=== PATIENT | female | born 1975 | race Caucasian/White ===

== ENCOUNTER 2020-06-15 03:21 | Emergency (ER) | payer OTHER, SELFPAY ==
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
[2020-06-15 03:42] VITALS: PULSE 64; RESP 18; TEMP 36.6; BMI 25.3
[2020-06-15 04:00] VITALS: BP 110/76; PULSE 64; RESP 16; O2SAT 98
[2020-06-15 04:02] LABS: Amphetamines Screen Urine Negative (Negative); Barbiturates Screen Urine Negative (Negative); Benzodiazepines Screen Urine Negative (Negative); Cocaine Screen Urine Negative (Negative); Opiate Screen Urine Negative (Negative); PCP Screen Urine Negative (Negative); THC Screen Urine Negative (Negative)
[2020-06-15 04:30] VITALS: BP 112/74; PULSE 70; RESP 16; O2SAT 98
== END 2020-06-15 04:32 | disposition home or self-care (01) ==
PROVIDERS: Emergency Provider Emergency Medicine
DX: S30.810A Abrasion of lower back and pelvis, initial encounter (principal); X58.XXXA Exposure to other specified factors, initial encounter
CPT/HCPCS: 12345; 80306; 99281; 99282

== ENCOUNTER → 2022-08-31 09:54 | Outpatient (BNVA) | payer OTHER, SELFPAY | PROVIDERS: Visit Provider Nurse Practitioner Family | DX: R07.81 Pleurodynia (principal); M25.521 Pain in right elbow | CPT/HCPCS: 71101; 73080; 73562 ==

== ENCOUNTER 2022-11-20 17:41 | Emergency (ER) | payer OTHER, BC, SELFPAY ==
[2022-11-20 18:06] VITALS: BP 126/76; PULSE 76; RESP 14; TEMP 36.7; O2SAT 99
--- NOTE | 2022-11-20 18:36 | ED_ITS ---
HPI - Dental/Oral General: Chief complaint: Dental/Oral Stated complaint: jaw pain/infection Time Seen by Provider: 11/20/22 18:34 History of Present Illness: 47-year-old female comes in today for complaints of posterior pharynx drainage and concerned that she had a adhesion of her de ntal surgery. Surgery occurred about 6 months ago. Patient reported tasting some foul drainage and coughing up some greenish sputum. Patient also is concerned about her left ankle as it has been weaker and giving out more since having the knee injury. The knee injury has been managed by Workmen's Comp. Patient reports 2 days ago she twisted her ankle again and is concerned she may have injured it. Patient appears nontoxic. Patient appears in no pain. Associated symptoms: Denies fever(s) Review of Systems General: Reports: 10 or more systems reviewed and unremarkable except in HPI and below Const: Denies: fever(s) ENMT: Reports: post nasal drip Musc: Reports: extremity pain PFSH ED PFSH: Social History Smoking and tobacco status: never smoked Female Reproductive History: Spontaneous abortions: No Physical Exam Const: COMMON NORMALS: alert HENMT: COMMON NORMALS: normocephalic HEAD & SCALP: normocephalic MOUTH: Normal oral and palatal mucosa present THROAT: posterior oropharynx abnormal erythema and other (Streaking and drainage) Neck/C-Spine: COMMON NORMALS: full ROM Lymph: LYMPHATIC: lymphadenopathy (Mild left side tender) Resp: COMMON NORMALS: normal respiratory effort Cardio: COMMON NORMALS: regular rate RATE: regular rate Extremity: LEFT LOWER EXTREMITY: Yes ankle joint (No swelling) Left ankle: Yes inspection, Yes palpation and Yes ROM Neuro: SENSORIUM/ORIENTATION: Yes alert Skin: COMMON NORMALS: turgor normal GENERAL SKIN EXAM: turgor normal Course Vital Signs: Vital signs: Vital Signs Temperature 98.1 F 11/20/22 18:06 Pulse Rate 76 11/20/22 18:06 Respiratory Rate 14 11/20/22 18:06 Blood Pressure 126/76 11/20/22 18:06 Pulse Oximetry 99 11/20/22 18:06 Oxygen Delivery Me thod 11/20/22 18:06 MDM - Dental/Oral Medical Decision Making Patient comes in today for concerns of infection from old dental surgery over 6 months ago. Patient is also concerned about an ankle injury from 2 days ago. On exam posterior pharynx shows some streaking and some drainage. Patient has some anterior lymphadenopathy with some mild tenderness on the left side. Respirations are even. Patient also has some tenderness to the lateral left ankle without no swelling. Differential diagnosis includes not limited to malingering, postnasal drip, sinusitis, ankle sprains, osteoarthritis. X-ray was unremarkable of the ankle. Believe patient probably has a mild sinusitis we will treat with doxycycline and recommend follow-up further for her ankle with her Workmen's Comp. provider. Patient reported understanding and agreed to plan. Lab Data Radiology Impressions Ankle X-Ray 11/20/22 18:49 IMPRESSION: No acute findings. Discharge Plan Discharge Patient Disposition: Home Clinical Impression: PND (post-nasal drip) Ankle sprain Qualifiers: Encounter type: initial encounter Involved ligament of ankle: unspecified ligament Laterality: left Qualified Code(s): S93.402A - Sprain of unspecified ligament of left ankle, initial encounter Condition: Stable Prescriptions: New doxycycline monohydrate 100 mg capsule 100 mg PO BID 10 Days Qty: 20 0RF No Action methocarbamol 750 mg tablet 750 mg PO Q8H Qty: 5 0RF Discharge Orders: Discharge ED (Routine); Ordered 11/20/22 Ordered By: Samuel Cagle Discharge Diet: Usual diet Patient Instructions: Ankle Sprain (ED) Activity Restrictions/Additional Instructions: Take antibiotics as directed. Drink plenty of water with medication. Follow-up with primary care/dentist for further evaluation and concerns of dental repair. Follow-up with Workmen's Comp. provider for further evaluation of ankle and knee. Return to ED for new concerns. Coding Level of Care Code ED Print Line Supervisor for Aiden Wilson
--- NOTE | 2022-11-20 18:49 | XRR_ITS ---
PROCEDURE INFORMATION: Exam: XR Left Ankle Exam date and time: 11/20/2022 6:54 PM Age: 47 years old Clinical indication: Pain; Ankle; Left; Additional info: Injury TECHNIQUE: Imaging protocol: Radiologic exam of the Left ankle. Views: 3 or more views. COMPARISON: No relevant prior studies available. FINDINGS: Bones/joints: Normal. Soft tissues: Normal. XR/XR ankle LT min 3V* [id number] IMPRESSION: No acute findings.
[2022-11-20] MEDS: doxycycline 100 mg Tablet PO (19:09)
== END 2022-11-20 19:44 | disposition home or self-care (01) ==
PROVIDERS: Emergency Provider Nurse Practitioner Family
DX: R09.82 Postnasal drip (principal); S93.402A Sprain of unspecified ligament of left ankle, initial encounter; X50.1XXA Overexertion from prolonged static or awkward postures, initial encounter
CPT/HCPCS: 73610; 99283

== ENCOUNTER 2022-11-24 07:39 | Outpatient (CLI) | payer OTHER, SELFPAY ==
--- NOTE | 2022-11-24 08:07 | MR_ITS ---
WS: [id number] MRI LEFT KNEE HISTORY: SPRAIN OF OTHER SPECIFIED PARTS OF L KNEE COMPARISON: Radiograph 08/31/2022 Anterior cruciate ligament: Mild thickening and variable signal within the ACL. No tear. Most likely mucoid degeneration. Posterior cruciate ligament: Intact. Medial collateral ligament: Increased fluid surrounding the MCL. There is a partial tear involving th e MCL above the knee joint. Posterior lateral corner structures: Intact. Medial menisci: Intact. Normal signal, size and shape. Lateral meniscus: Intact. Normal signal, size and shape. Extensor mechanism: Distal quadriceps tendon and patellar tendons are intact. Fluid and soft tissue: No joint effusion. No Ramesh's cyst. Osseous and articular structures: Patellofemoral compartment: Normal. Medial compartment: Very minimal medial compartment. 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 There is a small amount of soft tissue edema exte nding posterior and along the medial femoral condyle. Lateral compartment: Negative. MR/MR knee LT wo con* [id number] IMPRESSION: 1. Partial tear MCL. 2. 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 3. Small amount of soft tissue edema adjacent to the medial femoral condyle ex tending posteriorly. Probably associated with the MCL injury and tear.
== END 2022-11-24 07:40 | disposition home or self-care (01) ==
PROVIDERS: Visit Provider Family Medicine
DX: S83.412A Sprain of medial collateral ligament of left knee, initial encounter (principal); M94.262 Chondromalacia, left knee; R60.0 Localized edema; X58.XXXA Exposure to other specified factors, initial encounter
CPT/HCPCS: 73721

== ENCOUNTER 2023-01-11 16:55 | Emergency (ER) | payer OTHER, BC, SELFPAY ==
[2023-01-11 17:13] VITALS: BP 115/75; PULSE 68; RESP 16; TEMP 36.6; O2SAT 98; BMI 29.6
--- NOTE | 2023-01-11 18:00 | XRR_ITS ---
PROCEDURE INFORMATION: Exam: XR Left Tibia and Fibula Exam date and time: 01/11/2023 6:40 PM Age: 47 years old Clinical indication: Pain; Lower leg; Left; Additional info: Injury, fell in August, cold, knot, lateral side, bruise TECHNIQUE: Imaging protocol: Radiologic exam of the Left tibia and fibula. Views: 2 views. COMPARISON: CR (LOW EXM, ) 11/20/2022 6:54 PM FINDINGS: Bones/joints: Tibia and fibula are intact. Negative for fracture. Soft tissues: Normal. XR/XR tibia fibula LT 2V [id number] IMPRESSION: No acute findings.
--- NOTE | 2023-01-11 18:00 | XRR_ITS ---
PROCEDURE INFORMATION: Exam: XR Left Ankle Exam date and time: 01/11/2023 6:40 PM Age: 47 years old Clinical indication: Pain; Ankle; Left; Additional info: Pain, fell in August off a platform, lateral pain, swelling TECHNIQUE: Imaging protocol: Radiologic exam of the Left ankle. Views: 3 or more views. COMPARISON: CR (LOW EXM, ) 11/20/2022 6:54 PM FINDINGS: Bones/joints: Osseous structures are intact. Negative for fracture. Joint spaces are preserved. Soft tissues: Normal. XR/XR ankle LT min 3V* [id number] IMPRESSION: No acute findings.
--- NOTE | 2023-01-11 18:00 | XRR_ITS ---
PROCEDURE INFORMATION: Exam: XR Left Knee Exam date and time: 01/11/2023 6:40 PM Age: 47 years old Clinical indication: Pain; Knee; Left; Additional info: Injury, fell in August, heard a pop TECHNIQUE: Imaging protocol: Radiologic exam of the Left knee. Views: 3 views. COMPARISON: MR knee LT wo con* [id number] 11/24/2022 8:50 AM FINDINGS: Bones/joints: Osseous structures are intact. Negative for fracture. Joint spaces are preserved. Soft tissues: Normal. XR/XR knee LT 3V* [id number] IMPRESSION: No acute findings.
--- NOTE | 2023-01-11 19:10 | W.ED.EXTPRO ---
HPI - Extremity Problem General: Chief complaint: Extremity Injury, Lower Stated complaint: left leg pain Time Seen by Provider: 01/11/23 19:10 PFSH ED PFSH: Social History Smoking and tobacco status: never smoked Female Reproductive History: Spontaneous abortions: No Course Vital Signs: Vital signs: Vital Signs Temperature 97.9 F 01/11/23 17:13 Pulse Rate 68 01/11/23 17:13 Respiratory Rate 16 01/11/23 17:13 Blood Pressure 115/75 01/11/23 17:13 Pulse Oximetry 98 01/11/23 17:13 Oxygen Delivery Me thod 01/11/23 17:13 Discharge Plan Discharge Condition: Stable Prescriptions: No Action methocarbamol 750 mg tablet 750 mg PO Q8H Qty: 5 0RF Coding Level of Care Code ED [employer] Sales Representative for Aiden Wilson
--- NOTE | 2023-01-11 19:24 | W.ED.EXTPRO ---
HPI - Extremity Problem General: Chief complaint: Extremity Injury, Lower Stated complaint: left leg pain Time Seen by Provider: 01/11/23 19:10 History of Present Illness: Patient is in today for left knee and leg pain. She reports that in August she fell and hurt her knee. She is followed up with Workmen's Comp. and also had an MRI of the knee which showed a torn meniscus. She is doing physical therapy exercises. She reports that today she was doing her physical therapy exercises and now she is felt a pop below her knee and she has pain down the left lateral leg. Associated symptoms: Deny chest pain or fever(s) Review of Systems Const: Denies: fever(s) or chills Card: Denies: chest pain or palpitations Resp: Denies: dyspnea, productive cough or non-productive cough Musc: Reports: extremity pain, extremity swelling and joint pain PFS ED PFSH: Social History Smoking and tobacco status: never smoked Female Reproductive History: Spontaneous abortions: No Physical Exam Const: OTHER: Patient is sitting in the recliner in vertical flow. She is continuously rubbing her left leg on the lateral side very firm. Resp: COMMON NORMALS: normal respiratory effort and No use of accessory muscles Extremity: NARRATIVE EXTREMITY EXAM: There is tenderness to palpation over the region of the left knee lateral collateral ligament. Also the left lateral calf there is noted some bruising but this is in the area that the patient is continuously rubbing very firmly. I suspect the patient has caused superficial tissue trauma from the repeated rubbing. Negative Homans' sign. No tenderness to palpation to the calf posterior, popliteal region. Full range of motion appreciated. No obvious bony or soft tissue deformity. Tenderness to palpation isolated along the lateral collateral ligament and one area on the mid metcalf there is some bony tenderness. Patient does have minimal edema extending down to the ankle. CSM within normal limits Course Vital Signs: Vital signs: Vital Signs Temperature 97.9 F 01/11/23 17:13 Pulse Rate 83 01/11/23 20:40 Respiratory Rate 16 01/11/23 20:40 Blood Pressure 124/38 01/11/23 20:40 Pulse Oximetry 100 01/11/23 20:40 Oxygen Delivery Me thod 01/11/23 17:13 MDM - Extremity (Nontraumatic) Medical Decision Making Knee strain/sprain, fracture Patient is a little concerned about a DVT however I explained to her that her lateral calf is less likely for DVT due to anatomical placement of deep venous structures. X-ray 3 view left knee wet read: No acute osseous deformity, x-ray 2 view tib-fib wet read: No acute osseous deformity, x-ray 3 view left ankle wet read: No acute osseous deformity. Awaiting radiologist review We will treat patient conservatively for strain of the lateral collateral ligament of the left knee. Phil wrap the knee. Provide patient with crutches and advised her to limit weightbearing for the next 3 days and slowly advance weightbearing as tolerated. Advised patient to elevate the extremity above the level of her heart and ice the extremity several times per day. Advised her to follow-up with her Workmen's Comp. physician and orthopedist. Return to the ER as needed for new or worsening symptoms Lab Data Radiology Impressions Ankle X-Ray 01/11/23 18:00 IMPRESSION: No acute findings. Knee X-Ray 01/11/23 18:00 IMPRESSION: No acute findings. Tibia/Fibula X-Ray 01/11/23 18:00 IMPRESSION: No acute findings. Discharge Plan Discharge Patient Disposition: Home Clinical Impression: Sprain of knee, lateral collateral ligament Condition: Stable Prescriptions: No Action methocarbamol 750 mg tablet 750 mg PO Q8H Qty: 5 0RF Discharge Orders: Discharge ED (Routine); Ordered 01/11/23 Ordered By: Kenisha Urbina Discharge Diet: Usual diet Discharge Activity: Limit activity as instructed Patient Instructions: Knee Sprain (ED) Activity Restrictions/Additional Instructions: I recommend that using crutches to limit weightbearing x3 days and then slowly advance weightbearing as tolerated. Elevate the extremity above the level of your heart and ice the extremity several times per day. Continue follow-up with Workmen's Comp. provider and orthopedics for your ongoing knee pain. Return to the ER as needed for new or worsening symptoms Stand Alone Forms: Work/School Release Coding Level of Care Code ED Individualized Education Plan Aide for Aiden Wilson
[2023-01-11] MEDS: ketorolac 60 mg/2 mL INJ IM (20:24)
[2023-01-11 20:40] VITALS: BP 124/38; PULSE 83; RESP 16; O2SAT 100
== END 2023-01-11 20:30 | disposition home or self-care (01) ==
PROVIDERS: Emergency Provider Nurse Practitioner Family
DX: S83.422A Sprain of lateral collateral ligament of left knee, initial encounter (principal); X58.XXXA Exposure to other specified factors, initial encounter; Y93.B9 Activity, other involving muscle strengthening exercises
CPT/HCPCS: 73562; 73590; 73610; 96372; 99284; E0114; J1885

== ENCOUNTER 2023-08-11 19:59 | Emergency (ER) | payer OTHER, SELFPAY ==
[2023-08-11 20:11] VITALS: BP 127/78; PULSE 69; RESP 16; TEMP 36.4; O2SAT 97; BMI 29.0
--- NOTE | 2023-08-11 20:32 | XRR_ITS ---
PROCEDURE INFORMATION: Exam: XR Lumbosacral Spine Exam date and time: 08/11/2023 8:50 PM Age: 48 years old Clinical indication: Prior surgery; Surgery date: 6+ months; Surgery type: L5-s1 disc prosthesis; Patient HX: C/O persistent low back pain since a fall in May. TECHNIQUE: Imaging protocol: Radiologic exam of the lumbosacral spine. Views: 2 or 3 views. COMPARISON: CT lumbar spine wo contrast 12/12/2011 1:35 PM FINDINGS: Bones/joints: Minimal levoconvex curvature of the lumbar spine. No acute fracture or vertebral compression. Narrowing of the intervertebral disc space at L4-L5. Minimal Grade 1 anterolisthesis of L4 without associated fracture and presumably degenerative related. Stable position of the L5-S1 disc prosthesis. Soft tissues: Unremarkable. XR/XR lumbar spine 2-3V* [id number] IMPRESSION: 1. Stable position of the L5-S1 disc prosthesis. 2. Degenerative disc disease at L4-L5. 3. Minimal grade 1 anterolisthesis of L4, likely degenerative related.
--- NOTE | 2023-08-11 20:32 | W.ED.BACK ---
HPI - Back Pain/Injury General: Chief Complaint: Back Pain/Injury Stated Complaint: Lower Back Pain\Left Knee Pain Time Seen by Provider: 08/11/23 20:25 History of Present Illness: 48-year-old female presents emergency with lower back pain within the past few months. Patient given extensive history of back injury that started last August and sustained another injury in May of this year. Patient was seen and evaluated by a specialist in May but never had any x-ray done. She described the pain as sharp aching sensation with severity of 9 out of 10 mostly lower lumbar area. Increased pain with bending and movement. Patient denies any dysuria, hematuria or flank pain. No bowel or bladder dysfunction. No lower extremity numbness or tingling. No fever or chills. No new injury or recent fall. Associated symptoms: Deny chills, dysuria, fatigue or fever(s) Review of Systems General: Reports: 10 or more systems reviewed and unremarkable except in HPI and below Const: Denies: fever(s), chills, body aches, change in appetite, change in weight, fatigue or malaise Resp: Denies: dyspnea, productive cough or non-productive cough : Denies: flank pain, difficulty voiding, dysuria, amenorrhea or pelvic pain Musc: Reports: back pain; Denies: extremity pain, extremity swelling, joint swelling, joint redness, joint stiffness, limited range of motion or loss of height PFS ED PFSH: Social History Smoking and tobacco status: never smoked Female Reproductive History: Spontaneous abortions: No Physical Exam Const: COMMON NORMALS: no acute distress, average body habitus, patient oriented x3, no limitations, healthy appearing, alert and well nourished Neck/C-Spine: COMMON NORMALS: full ROM, no lymphadenopathy, supple, no meningeal signs, no JVD, Thyroid normal and No carotid bruits THYROID: Thyroid normal Chest: COMMONS NORMALS: normal inspection of the chest, normal palpation of entire chest wall, normal inspection of the breasts and normal palpation of the breasts Breast/axilla inspection: Yes normal inspection of the breasts BREAST/AXILLA PALPATION: Yes normal palpation of the breasts Resp: COMMON NORMALS: normal respiratory effort, No retractions, No use of accessory muscles, clear to auscultation bilaterally and percussion normal AUSCULTATION: clear to auscultation bilaterally PERCUSSION: percussion normal Cardio: COMMON NORMALS: no JVD GI: COMMON NORMALS: Normal to inspection, nondistended, normoactive bowel sounds present, Soft to palpation, non-tender, No hepatosplenomegaly present, no masses and no bruits PALPATION: Yes Soft to palpation and Yes No hepatosplenomegaly present Back/Pelvis: LUMBAR SPINE/LOWER BACK: Yes lumbar spinal tenderness Lumbar spinal tenderness location: L3, L4 and L5, No mass present and No Lumbar scoliosis PELVIS: Yes buttocks normal SACRUM: no ecchymosis, no erythema and no swelling Neuro: COMMON NORMALS: patient oriented x3 SENSORIUM/ORIENTATION: Yes alert MENINGEAL SIGNS: Yes no meningeal signs Skin: COMMON NORMALS: no rashes or lesions noted, no wounds, turgor normal, no jaundice, no petechiae and no mottling GENERAL SKIN EXAM: no rashes or lesions noted and turgor normal Course Vital Signs: Vital signs: Vital Signs Temperature 97.5 F L 08/11/23 20:11 Pulse Rate 67 08/11/23 20:41 Respiratory Rate 18 08/11/23 20:41 Blood Pressure 127/84 08/11/23 20:41 Pulse Oximetry 99 08/11/23 20:41 Oxygen Delivery Me thod Room Air 08/11/23 20:41 MDM - Back Pain/Injury Medical Decision Making Patient was made comfortable emergency room and had extensive work-up including x-ray done. X-ray reviewed and discussed with patient. Close follow-up PCP recommended for further evaluation such as MRI. Will give referral to see orthopedic surgeon and back specialist locally. Differential Diagnosis Likely lumbar radiculopathy, sciatica, strain of lumbar region, renal colic, pyelonephritis, thoracic back pain, AAA and discitis Labs Radiology Impressions Lumbar Spine X-Ray 08/11/23 20:32 IMPRESSION: 1. Stable position of the L5-S1 disc prosthesis. 2. Degenerative disc disease at L4-L5. 3. Minimal grade 1 anterolisthesis of L4, likely degenerative related. All radiology interpretation(s) finalized by discharge Discharge Plan Discharge Patient Disposition: Home Clinical Impression: Strain of lumbar region, Back pain, Chronic back pain Condition: Stable Prescriptions: New naproxen 500 mg tablet 500 mg PO BID PRN (Reason: pain) Qty: 20 0RF tramadol 50 mg tablet 50 mg PO Q12H PRN (Reason: pain) Qty: 20 0RF No Action methocarbamol 750 mg tablet 750 mg PO Q8H Qty: 5 0RF Discharge Orders: Discharge ED (Routine); Ordered 08/11/23 Ordered By: Bud Estes Referrals: Daniele Melendez MD [Primary Care Provider] - Discharge Diet: Advance as tolerated Discharge Activity: Resume usual activity Patient Instructions: Opioid Safety, Pain Management Coding Level of Care Code ED Pulper Operator for Aiden Wilson
[2023-08-11 20:41] VITALS: BP 127/84; PULSE 67; RESP 18; O2SAT 99
[2023-08-11] MEDS: ketorolac 30 mg/mL INJ IM (20:47)
[2023-08-11] MEDS: dexamethasone 10 mg/mL INJ IM (20:47)
[2023-08-11 22:57] VITALS: RESP 16
== END 2023-08-11 22:57 | disposition home or self-care (01) ==
PROVIDERS: Emergency Provider Family Medicine; PCP Family Medicine
DX: S39.012A Strain of muscle, fascia and tendon of lower back, initial encounter (principal); G89.29 Other chronic pain; X58.XXXA Exposure to other specified factors, initial encounter
CPT/HCPCS: 72100; 96372; 99284; J1100; J1885

== ENCOUNTER 2023-10-17 10:31 | Outpatient (CLI) | payer OTHER, SELFPAY ==
--- NOTE | 2023-10-17 10:41 | MR_ITS ---
WS: [id number] MRI LUMBAR SPINE NONCONTRAST TECHNIQUE: Sagittal T1, T2 and STIR imaging. Axial T1 and T2 imaging. CLINICAL INFORMATION: LOW BACK PAIN COMPARISON: MRI 2015 FINDINGS: Mild lumbar curve. No acute compression. Mild disc bulging L2-L4 progressed compared to 2015. No high -grade central canal stenosis. Incidental Tarlov cyst in the sacrum. L1-L2: Normal. L2-L3: Mild annular bulging. Mild facet arthropathy. Spinal canal and foramen are patent. L3-L4: Mild annular bulging. Slight narrowing subarticular recess bilaterally. Moderate facet arthrop athy. Small RIGHT foraminal protrusion with mild RIGHT foraminal narrowing. No significant LEFT marizol inal narrowing. L4-L5: Mild annular bulging with slight effacement of the ventral thecal sac. Moderate facet arthropa thy. Mild bilateral foraminal narrowing. Slight narrowing of the LEFT greater than RIGHT subarticular recess. L5-S1: Prior postoperative changes interbody fusion L5-S1 with susceptibility artifact. Mild facet ar thropathy. Foramen appear patent. Adrenal glands are normal. Visualized pelvic bony structures: Normal. Paravertebral soft tissues: Normal. IMPRESSION: 1. Mild lumbar curve. No acute compression. Prior interbody fusion L5-S1 with susceptibility artifac t. 2. Small RIGHT foraminal protrusion L3-4 with mild RIGHT foraminal narrowing and slight impingement on the exiting RIGHT L3 nerve root. This is new compared to previous. 3. Mild annular bulging L4-5 with some impingement on the subarticular recess LEFT greater than RIGH T and traversing L5 nerve roots new compared to previous. Mild RIGHT greater than LEFT foraminal narr owing. 4. Moderate facet arthropathy L3-L4 and L4-L5.
--- NOTE | 2023-10-17 10:41 | MR_ITS ---
WS: [id number] MRI LEFT KNEE NONCONTRAST TECHNIQUE: Axial PD, coronal PD fat sat, coronal PD, sagittal PD, and sagittal PD fat-sat images obta ined. CLINICAL INFORMATION: PAIN IN LEFT KNEE COMPARISON: MRI 2021 FINDINGS: Distal quadriceps and patella tendons are intact. Hypertrophic patella. Normal ACL and PCL. Chronic t hinning of the medial and lateral meniscus. No acute appearing meniscal tears. Moderate chondromalacia medial greater than lateral joint compartments. Mild to moderate chondromalac ia patella. Normal medial and lateral patellar retinaculum. Normal popliteal fossa. Normal medial and lateral collateral ligaments. Previously described edema about the MCL has improved and essentially resolved. Small amount of prepatellar and infrapatellar soft tissue edema. Chondromalacia in the medial joint compartment has progressed compared to previous. IMPRESSION: 1. Normal ACL and PCL. 2. Grade III chondromalacia medial joint compartment has progressed compared to previous. No subchon dral edema. Chronic thinning of the medial meniscus. 3. No acute appearing meniscal tears. 4. Moderate chondromalacia patella. 5. MCL and LCL appear intact. 6. No other acute findings. Outbridge grading:
== END 2023-10-17 10:32 | disposition home or self-care (01) ==
LOC: RAD 10:31
PROVIDERS: PCP Family Medicine; Visit Provider Nurse Practitioner Family
DX: M25.562 Pain in left knee (principal); M54.50 Low back pain, unspecified; M51.16 Intervertebral disc disorders with radiculopathy, lumbar region; M43.06 Spondylolysis, lumbar region; M94.262 Chondromalacia, left knee
CPT/HCPCS: 72148; 73721

== ENCOUNTER 2023-12-12 15:24 | Emergency (ER) | payer OTHER, SELFPAY ==
[2023-12-12 15:31] VITALS: BP 114/73; PULSE 78; RESP 15; TEMP 37.1; O2SAT 98; BMI 29.0
[2023-12-12 16:55] VITALS: BP 116/65; PULSE 65; RESP 18; O2SAT 96
--- NOTE | 2023-12-12 16:56 | W.ED.BACK ---
HPI - Back Pain/Injury General: Chief Complaint: Back Pain/Injury Stated Complaint: lower back pain Time Seen by Provider: 12/12/23 16:41 Source: patient Mode of arrival: ambulatory History of Present Illness: 48-year-old female was injured in a work injury during the summer last year has been doing follow-up with orthopedic spine surgery has had MRIs various other interventions continues to have severe back pain today she had a walk a long distance on uneven ground after tractor broke down is complaining of severe back pain no red flag symptoms she did not fall no fecal incontinence or urinary retention MD elicited complaint: back pain Associated symptoms: Deny abdominal pain, chills, dysuria, fever(s) or urinary urgency Review of Systems Const: Denies: fever(s) or chills Card: Denies: chest pain Resp: Denies: dyspnea GI: Denies: abdominal pain : Denies: dysuria, urinary frequency or urinary urgency Musc: Denies: neck pain or back pain Skin/Breast: Denies: rash PFSH ED PFSH: Social History Smoking and tobacco/nicotine status: never used tobacco/nicotine Female Reproductive History: Spontaneous abortions: No Physical Exam Const: COMMON NORMALS: no acute distress GENERAL APPEARANCE: cooperative and comfortable ORIENTATION/CONSCIOUSNESS: Yes awake, Yes oriented to person, Yes oriented to place and Yes oriented to time HENMT: COMMON NORMALS: normocephalic, atraumatic and hearing grossly normal bilaterally HEAD & SCALP: normocephalic and atraumatic Resp: COMMON NORMALS: normal respiratory effort, No retractions, No use of accessory muscles and clear to auscultation bilaterally AUSCULTATION: clear to auscultation bilaterally Cardio: COMMON NORMALS: regular rate, regular rhythm and No murmurs present (Cardio) RATE: regular rate RHYTHM: regular rhythm GI: COMMON NORMALS: Soft to palpation and No hepatosplenomegaly present AUSCULTATION: Yes normoactive bowel sounds PALPATION: Yes Soft to palpation, No Tenderness to palpation present (GI), No Guarding due to palpation present (GI) and Yes No hepatosplenomegaly present Extremity: COMMON NORMALS: normal to inspection, capillary refill normal, no clubbing, cyanosis or edema, no calf tenderness and no pedal edema Neuro: SENSORIUM/ORIENTATION: Yes oriented to person, Yes oriented to place and Yes oriented to time Skin: COMMON NORMALS: no rashes or lesions noted GENERAL SKIN EXAM: no rashes or lesions noted Course Vital Signs: Vital signs: Vital Signs Temperature 98.7 F 12/12/23 15:31 Pulse Rate 65 12/12/23 16:55 Respiratory Rate 18 12/12/23 16:55 Blood Pressure 116/65 12/12/23 16:55 Pulse Oximetry 96 12/12/23 16:55 Oxygen Delivery Me thod Room Air 12/12/23 16:55 MDM - Back Pain/Injury Medical Decision Making Back pain improved with medications given. Will discharge home on steroid taper change her to tizanidine diclofenac add Lyrica. Also use Phenergan as needed for nausea follow-up as scheduled with orthopedic spine surgery. Differential Diagnosis Likely lumbar radiculopathy, sciatica and strain of lumbar region Medical Records I reviewed the patient's medical records. Labs I reviewed the patient's lab results. No radiology studies performed this visit Discharge Plan Discharge Patient Disposition: Home Clinical Impression: Lumbar radiculopathy Condition: Stable Prescriptions: New tizanidine 4 mg tablet 4 mg PO Q6H PRN (Reason: muscle spasticity) Qty: 20 0RF Rx Instructions: do not exceed 3 doses per 24 hrs prednisone 20 mg tablet 20 mg PO TID Qty: 15 0RF Rx Instructions: 1 p.o. 3 times daily x3 days, 1 p.o. twice daily x2 days, 1 p.o. daily x2 days diclofenac sodium 75 mg tablet,delayed release (DR/EC) 75 mg PO Q12H PRN (Reason: pain) Qty: 20 0RF Lyrica 75 mg capsule 75 mg PO BID Qty: 60 0RF promethazine 25 mg tablet 25 mg PO Q6H PRN (Reason: nausea and vomiting) Qty: 20 0RF Held naproxen 500 mg tablet 500 mg PO BID PRN (Reason: pain) Qty: 20 0RF Hold Instructions: Resume on 12/22/23. No Action methocarbamol 750 mg tablet 750 mg PO Q8H Qty: 5 0RF tramadol 50 mg tablet 50 mg PO Q12H PRN (Reason: pain) Qty: 20 0RF Discharge Orders: Discharge ED (Routine); Ordered 12/12/23 Ordered By: Jim Deluna Referrals: Daniele Melendze MD [Primary Care Provider] - Discharge Diet: Usual diet Discharge Activity: Increase activity as tolerated Patient Instructions: Lumbar Radiculopathy (ED), Opioid Safety, Pain Management Activity Restrictions/Additional Instructions: Thank you for choosing [facility] for your healthcare needs today. Please realize this is an emergency room and that we are providing you with a medical screening exam and this may not be complete and all inclusive of all the testing and or work up that you may need to determine your ailment or severity of your illness. It is very important that you follow up as instructed or that you return to the Emergency Department should you have concerns or if your condition changes or worsens in any way. Coding Level of Care Code ED Cardroom Supervisor for Aiden Wilson
[2023-12-12] MEDS: morphine 4 mg/mL SDV 1 mL IVP (17:32)
[2023-12-12] MEDS: dexamethasone 10 mg/mL INJ IVP (17:32)
[2023-12-12] MEDS: orphenadrine 30 mg/mL Inj 2 mL 60 MG IVP (17:33)
[2023-12-12] MEDS: ketorolac 30 mg/mL INJ IVP (17:33)
== END 2023-12-12 18:33 | disposition home or self-care (01) ==
PROVIDERS: Emergency Provider Family Medicine; PCP Family Medicine
DX: M54.16 Radiculopathy, lumbar region (principal)
CPT/HCPCS: 96374; 96375; 99284; J1100; J1885; J2270; J2360

== ENCOUNTER → 2024-06-11 13:01 | Outpatient (BNVA) | payer SELFPAY | PROVIDERS: PCP Family Medicine; Visit Provider Nurse Practitioner | DX: M25.562 Pain in left knee (principal) | CPT/HCPCS: 73560; 73565 ==

== ENCOUNTER → 2024-11-11 15:33 | Outpatient (BNVA) | payer BC, SELFPAY | PROVIDERS: PCP Family Medicine; Visit Provider Orthopaedic Surgery | DX: M54.42 Lumbago with sciatica, left side (principal); G89.29 Other chronic pain | CPT/HCPCS: 72110 ==

== ENCOUNTER → 2024-11-12 10:33 | Outpatient (BNVA) | payer SELFPAY | PROVIDERS: PCP Family Medicine; Visit Provider Nurse Practitioner | DX: M25.562 Pain in left knee (principal); M54.42 Lumbago with sciatica, left side; G89.29 Other chronic pain | CPT/HCPCS: 73560; 73565 ==